=== PATIENT | male | born 1955 | race Caucasian/White ===

== ENCOUNTER 2019-08-23 08:34 | Emergency (ER) | payer MEDICARE, OTHER ==
[2019-08-23] MEDS ORDERED: Sodium Chloride 0.9% 10 ML Syringe FLUSH PRN (08:50)
[2019-08-23] MEDS ORDERED: Aspirin 81 MG Tab.Chew PO ONE (08:50)
[2019-08-23] MEDS ORDERED: Ondansetron 4 MG/2 ML SDV IVPUSH ONE (08:59)
--- NOTE | 2019-08-23 08:59 | EDM.PDOC ---
ED HPI GENERAL MEDICAL PROBLEM - General Chief Complaint: Chest Pain Stated Complaint: LIGHT HEADED AND CHEST PAIN Time Seen by Provider: 08/23/19 08:41 Source of Information: Reports: Patient, Family History Limitations: Reports: No Limitations - History of Present Illness INITIAL COMMENTS - FREE TEXT/NARRATIVE: The patient presents with chest pain, shortness of breath, generalized weakness and lightheadedness. He also felt like his heart was racing. He says he has been having some of these feelings for months where he has generalized weakness , lightheadedness and his heart will be racing. He says he will usually sit down and he feels better. Today he woke up feeling lightheaded and he had some chest pain, and shortness of breath. He denies fever or chills. He has no headache. He has no cough, congestion or runny nose. He has nausea but no vomiting. He has no abdominal pain. He has no history of heart problems. He has a history of hypertension for which he takes lisinopril. He has been eating and drinking okay lately. Onset: Gradual Duration: Week(s): Location: Reports: Chest (gone now) Quality: Reports: Ache Severity: Mild Improves with: Reports: None Worsens with: Reports: None Associated Symptoms: Reports: Chest Pain, Nausea/Vomiting, Shortness of Breath. Denies: Cough, Fever/Chills, Headaches - Related Data Allergies Allergy/AdvReac Type Severity Reaction Status Date / Time No Known Allergies Allergy Verified 08/23/19 08:41 Home Meds: Home Meds Lisinopril 20 mg PO DAILY 08/23/19 [History] ED ROS GENERAL - Review of Systems Review Of Systems: See Below Constitutional: Reports: Weakness, Fatigue. Denies: Fever, Chills HEENT: Reports: No Symptoms Respiratory: Reports: Shortness of Breath Cardiovascular: Reports: Lightheadedness. Denies: Chest Pain Endocrine: Reports: Fatigue GI/Abdominal: Reports: Nausea. Denies: Abdominal Pain, Vomiting : Reports: No Symptoms Musculoskeletal: Reports: No Symptoms Skin: Reports: No Symptoms Neurological: Reports: Weakness (Generalized). Denies: Headache ED EXAM, GENERAL - Physical Exam Exam: See Below Exam Limited By: No Limitations General Appearance: Alert, No Apparent Distress Ears: Normal External Exam Nose: Normal Inspection Head: Atraumatic, Normocephalic Neck: Normal Inspection Respiratory/Chest: No Respiratory Distress, Lungs Clear, Normal Breath Sounds Cardiovascular: Regular Rate, Rhythm, No Edema, No Murmur GI/Abdominal: Soft, Non-Tender, No Organomegaly, No Mass Back Exam: Normal Inspection Extremities: Normal Inspection Neurological: Alert, Oriented, No Motor/Sensory Deficits EKG INTERPRETATION EKG Date: 08/23/19 Time: 08:38 Rhythm: Other (sinus tachycardia) Rate (Beats/Min): 105 [place]: Normal P-Wave: Present QRS: Normal ST-T: Normal QT: Normal EKG Interpretation Comments: PVCs Course - Vital Signs Last Recorded V/S: Last Vital Signs Temp 98.0 F 08/23/19 08:35 Pulse 98 08/23/19 08:35 Resp 18 08/23/19 08:35 BP 186/81 H 08/23/19 08:35 Pulse Ox 100 08/23/19 08:35 Orthostatic Blood Pressure [ 154/92 Standing] Orthostatic Blood Pressure [ 176/82 Sitting] Orthostatic Blood Pressure [ 174/81 Supine] - Orders/Labs/Meds Orders: Active Orders 24 hr Category Date Time Status Cardiac Monitoring [RC] . DIRECTED Care 08/23/19 08:50 Active EKG Documentation Completion [RC] ASDIRECTED Care 08/23/19 11:11 Active EKG Documentation Completion [RC] STAT Care 08/23/19 08:51 Active Holter Monitor 48 Hours [RC] .PRN Care 08/23/19 11:56 Active Peripheral IV Care [RC] . DIRECTED Care 08/23/19 08:51 Active Sodium Chloride 0.9% [Normal Saline] 1,000 ml Med 08/23/19 09:00 Active IV .BOLUS Sodium Chloride 0.9% [Saline Flush] Med 08/23/19 08:50 Active 10 ml FLUSH ASDIRECTED PRN Peripheral IV Insertion Adult [OM.PC] Stat Oth 08/23/19 08:50 Ordered EKG 12 Lead [EK] Stat Ther 08/23/19 11:11 Ordered Medication Orders Sodium Chloride (Normal Saline) 1,000 mls @ 1,000 mls/hr IV .BOLUS TRUMAN Last Admin: 08/23/19 09:00 Dose: 1,000 mls/hr Sodium Chloride (Saline Flush) 10 ml FLUSH ASDIRECTED PRN PRN Reason: Keep Vein Open Last Admin: 08/23/19 08:55 Dose: 10 ml Labs: Laboratory Tests 08/23/19 08/23/19 08/23/19 Range/Units 08:55 08:55 08:55 WBC 4.80 (4.23-9.07) K/mm3 RBC 4.98 (4.63-6.08) M/mm3 Hgb 14.7 (13.7-17.5) gm/dl Hct 44.3 (40.1-51.0) % MCV 89.0 (79.0-92.2) fl MCH 29.5 (25.7-32.2) pg MCHC 33.2 (32.2-35.5) g/dl RDW Std Deviation 43.0 (35.1-43.9) fL Plt Count 177 (163-337) K/mm3 MPV 9.5 (9.4-12.3) fl Neut % (Auto) 65.3 (34.0-67.9) % Lymph % (Auto) 25.6 (21.8-53.1) % [place] % (Auto) 8.1 (5.3-12.2) % Eos % (Auto) 0.4 L (0.8-7.0) Baso % (Auto) 0.4 (0.1-1.2) % Neut # (Auto) 3.13 (1.78-5.38) K/mm3 Lymph # (Auto) 1.23 L (1.32-3.57) K/mm3 [place] # (Auto) 0.39 (0.30-0.82) K/mm3 Eos # (Auto) 0.02 L (0.04-0.54) K/mm3 Baso # (Auto) 0.02 (0.01-0.08) K/mm3 D-Dimer, Quantitative < 0.19 L (0.19-0.50) mg/L Sodium 134 L (136-145) mEq/L Potassium 4.0 (3.5-5.1) mEq/L Chloride 98 (98-107) mEq/L Carbon Dioxide 26 (21-32) mEq/L Anion Gap 14.0 (5-15) BUN 20 H (7-18) mg/dL Creatinine 0.9 (0.7-1.3) mg/dL Est Cr Clr Drug Dosing 91.87 mL/min Estimated GFR (MDRD) > 60 (>60) mL/min BUN/Creatinine Ratio 22.2 H (14-18) Glucose 174 H (80-115) mg/dL Calcium 9.4 (8.5-10.1) mg/dL Magnesium 1.7 L (1.8-2.4) mg/dl Total Bilirubin 0.4 (0.2-1.0) mg/dL AST 31 (15-37) U/L ALT 59 (16-63) U/L Alkaline Phosphatase 90 (46-116) U/L Troponin I < 0.017 (0.00-0.056) ng/mL Total Protein 7.5 (6.4-8.2) g/dl Albumin 4.2 (3.4-5.0) g/dl Globulin 3.3 gm/dL Albumin/Globulin Ratio 1.3 (1-2) TSH 3rd Generation 3.220 (0.358-3.74) uIU/mL 08/23/19 Range/Units 11:15 WBC (4.23-9.07) K/mm3 RBC (4.63-6.08) M/mm3 Hgb (13.7-17.5) gm/dl Hct (40.1-51.0) % MCV (79.0-92.2) fl MCH (25.7-32.2) pg MCHC (32.2-35.5) g/dl RDW Std Deviation (35.1-43.9) fL Plt Count (163-337) K/mm3 MPV (9.4-12.3) fl Neut % (Auto) (34.0-67.9) % Lymph % (Auto) (21.8-53.1) % [place] % (Auto) (5.3-12.2) % Eos % (Auto) (0.8-7.0) Baso % (Auto) (0.1-1.2) % Neut # (Auto) (1.78-5.38) K/mm3 Lymph # (Auto) (1.32-3.57) K/mm3 [place] # (Auto) (0.30-0.82) K/mm3 Eos # (Auto) (0.04-0.54) K/mm3 Baso # (Auto) (0.01-0.08) K/mm3 D-Dimer, Quantitative (0.19-0.50) mg/L Sodium (136-145) mEq/L Potassium (3.5-5.1) mEq/L Chloride (98-107) mEq/L Carbon Dioxide (21-32) mEq/L Anion Gap (5-15) BUN (7-18) mg/dL Creatinine (0.7-1.3) mg/dL Est Cr Clr Drug Dosing mL/min Estimated GFR (MDRD) (>60) mL/min BUN/Creatinine Ratio (14-18) Glucose (80-115) mg/dL Calcium (8.5-10.1) mg/dL Magnesium (1.8-2.4) mg/dl Total Bilirubin (0.2-1.0) mg/dL AST (15-37) U/L ALT (16-63) U/L Alkaline Phosphatase (46-116) U/L Troponin I < 0.017 (0.00-0.056) ng/mL Total Protein (6.4-8.2) g/dl Albumin (3.4-5.0) g/dl Globulin gm/dL Albumin/Globulin Ratio (1-2) TSH 3rd Generation (0.358-3.74) uIU/mL Meds: Medications Generic Name Dose Route Start Last Admin Trade Name Freq PRN Reason Stop Dose Admin Sodium Chloride 1,000 mls @ 1,000 mls/hr 08/23/19 09:00 08/23/19 09:00 Normal Saline IV 1,000 mls/hr .BOLUS TRUMAN Administration Sodium Chloride 10 ml 08/23/19 08:50 08/23/19 08:55 Saline Flush FLUSH 10 ml ASDIRECTED PRN Administration Keep Vein Open Discontinued Medications Generic Name Dose Route Start Last Admin Trade Name Freq PRN Reason Stop Dose Admin Aspirin 324 mg 08/23/19 08:50 08/23/19 09:13 Aspirin PO 08/23/19 08:51 324 mg ONETIME ONE Administration Ondansetron HCl 4 mg 08/23/19 08:59 08/23/19 09:05 Zofran IVPUSH 08/23/19 09:00 4 mg ONETIME ONE Administration - Re-Assessments/Exams Free Text/Narrative Re-Assessment/Exam: 08/23/19 12:00 I ordered an IV NS 1L bolus, EKG, CXR, labs, zofran and orthostatic vital. His EKG shows a sinus tachycardia with PVCs. His CXR looks good. His CBC and CMP look good. His troponin is negative. He did get lightheaded when my nurse did orthostatic vitals on him. His blood pressure did not drop that much. He feels good now. I am not seeing any abnormality now. He said when this first started this morning he did have some palpitations. I will get him on a holter monitor for 48 hours and have him follow up with his doctor within the week. Departure - Departure Time of Disposition: 12:05 Disposition: Home, Self-Care 01 Condition: Good Clinical Impression: Atypical chest pain, Lightheaded, Nausea Referrals: PCP,Not In Area [Primary Care Provider] - Forms: ED Department Discharge Additional Instructions: Wear the holter monitor for 48 hours. Follow up with your doctor within a week. Please return if you are worse. - My Orders Last 24 Hours: My Active Orders 08/23/19 08:50 Cardiac Monitoring [RC] . DIRECTED Sodium Chloride 0.9% [Saline Flush] 10 ml FLUSH ASDIRECTED PRN Peripheral IV Insertion Adult [OM.PC] Stat 08/23/19 08:51 EKG Documentation Completion [RC] STAT Peripheral IV Care [RC] . DIRECTED 08/23/19 09:00 Sodium Chloride 0.9% [Normal Saline] 1,000 ml IV .BOLUS 08/23/19 11:11 EKG Documentation Completion [RC] ASDIRECTED EKG 12 Lead [EK] Stat 08/23/19 11:56 Holter Monitor 48 Hours [RC] .PRN - Assessment/Plan Last 24 Hours: My Active Orders 08/23/19 08:50 Cardiac Monitoring [RC] . DIRECTED Sodium Chloride 0.9% [Saline Flush] 10 ml FLUSH ASDIRECTED PRN Peripheral IV Insertion Adult [OM.PC] Stat 08/23/19 08:51 EKG Documentation Completion [RC] STAT Peripheral IV Care [RC] . DIRECTED 08/23/19 09:00 Sodium Chloride 0.9% [Normal Saline] 1,000 ml IV .BOLUS 08/23/19 11:11 EKG Documentation Completion [RC] ASDIRECTED EKG 12 Lead [EK] Stat 08/23/19 11:56 Holter Monitor 48 Hours [RC] .PRN
[2019-08-23] MEDS ORDERED: Sodium Chloride 0.9% 1,000 ML IV SCH (09:00)
--- NOTE | 2019-08-23 10:53 | CR ---
Chest: Portable view of the chest was obtained. Comparison: No prior chest imaging is available. Slight parenchymal density within the upper right lung is seen most likely representing minimal area of focal scarring/fibrosis but difficult to exclude minimal area of infection if patient has correlating symptoms. Lungs otherwise are clear. Mild scoliosis is noted within the spine. Heart size is normal. Upper mediastinum is normal. Impression: 1. Small finding within the right upper lung as described above. 2. Nothing acute is otherwise seen. Diagnostic code #3 This report was dictated in [place] Standard Time
== END 2019-08-23 12:15 | disposition home or self-care (01) ==
LOC: JD.ED 08:34
DX: R07.89 Other chest pain (principal); R42 Dizziness and giddiness; R11.0 Nausea; I10 Essential (primary) hypertension; Z79.899 Other long term (current) drug therapy
CPT/HCPCS: 36415; 71045; 80053; 83735; 84443; 84484; 85025; 85379; 93005; 93225; 93226; 96361; 96374; 99285; A9270; J2405; J7030; 93010; 99284

== ENCOUNTER 2025-08-13 18:00 | Emergency (ER) | payer MEDICARE, OTHER ==
[2025-08-13 19:01] LABS: BASOPHILS ABSOLUTE AUTO 0.0 K/mm3 (0.0-0.2); BASOPHILS PERCENT AUTO 0.5 % (0.0-1.0); EOSINOPHILS ABSOLUTE AUTO 0.0 K/mm3 (0.0-0.4); EOSINOPHILS PERCENT AUTO 0.5 % (0.0-6.0); IMMATURE GRAN ABSOLUTE AUTO 0.01 K/mm3 (0.00-0.05); IMMATURE GRAN PERCENT AUTO 0.2 % (0.0-0.4); LYMPHOCYTES ABSOLUTE AUTO 2.2 K/mm3 (1.0-4.8); LYMPHOCYTES PERCENT AUTO 33.0 % (24.0-44.0); MEAN PLATELET VOLUME 9.9 fl (9.4-12.4); MONOCYTES ABSOLUTE AUTO 0.4 K/mm3 (0.0-0.8); MONOCYTES PERCENT AUTO 6.5 % (0.0-8.0); NEUTROPHILS ABSOLUTE AUTO 3.9 K/mm3 (1.8-7.7); NEUTROPHILS PERCENT AUTO 59.3 % (41.0-71.0); NRBC ABSOLUTE 0.00 (0.00-0.02); NRBC PERCENT 0.0 % (0.0-0.2); PLATELET COUNT,PLT 163 K/mm3 (150-400); RED BLOOD CELL COUNT 4.22 M/mm3 (4.52-5.90); WHITE BLOOD CELL COUNT,WBC 6.57 K/mm3 (3.9-11.3)
[2025-08-13] MEDS: Sodium Chloride 0.9% 10 ML Syringe FLUSH PRN (19:09)
[2025-08-13 19:21] LABS: A/G RATIO 1.2 (1-2); ALANINE AMINOTRANSFERASE,ALT 46 U/L (16-63); ASPARTATE AMNIOTRANSFERASE,AST 26 U/L (15-37); BILIRUBIN TOTAL 0.5 mg/dL (0.2-1.0); BLOOD UREA NITROGEN,BUN 20 mg/dL (7-18); CARBON DIOXIDE,CO2 28 mEq/L (21-32); CHLORIDE,CL 105 mEq/L (98-107); CREATININE 0.8 mg/dL (0.7-1.3); ESTIMATED GFR 95 mL/min (>60); GLUCOSE RANDOM 120 mg/dL (70-99); POTASSIUM,K 3.7 mEq/L (3.5-5.1); PROTEIN TOTAL,TP 6.9 g/dl (6.4-8.2); SODIUM,NA 142 mEq/L (136-145); TROPONIN I HIGH SENSITIVITY 6 pg/mL (<=76); TSH 3.839 uIU/mL (0.358-3.74)
[2025-08-13 19:58] LABS: T4 FREE 0.88 ng/dL (0.76-1.46)
== END 2025-08-13 20:23 | disposition home or self-care (01) ==
LOC: JD.ED 18:00
DX: R55 Syncope and collapse (principal); R00.2 Palpitations; I10 Essential (primary) hypertension; Z79.899 Other long term (current) drug therapy
CPT/HCPCS: 36415; 71046; 80053; 84439; 84443; 84484; 85025; 85379; 86140; 93005; 93246; 96360; 99285; J7030; 93010; 99283

== ENCOUNTER 2025-08-22 12:57 | Emergency (ER) | payer MEDICARE ==
[2025-08-22] MEDS ORDERED: Sodium Chloride 0.9% 10 ML Syringe FLUSH PRN (14:20)
[2025-08-22 14:41] LABS: BASOPHILS ABSOLUTE AUTO 0.0 K/mm3 (0.0-0.2); BASOPHILS PERCENT AUTO 0.4 % (0.0-1.0); EOSINOPHILS ABSOLUTE AUTO 0.0 K/mm3 (0.0-0.4); EOSINOPHILS PERCENT AUTO 0.1 % (0.0-6.0); IMMATURE GRAN ABSOLUTE AUTO 0.01 K/mm3 (0.00-0.05); IMMATURE GRAN PERCENT AUTO 0.1 % (0.0-0.4); LYMPHOCYTES ABSOLUTE AUTO 0.8 K/mm3 (1.0-4.8); LYMPHOCYTES PERCENT AUTO 12.0 % (24.0-44.0); MEAN PLATELET VOLUME 9.7 fl (9.4-12.4); MONOCYTES ABSOLUTE AUTO 0.4 K/mm3 (0.0-0.8); MONOCYTES PERCENT AUTO 6.4 % (0.0-8.0); NEUTROPHILS ABSOLUTE AUTO 5.6 K/mm3 (1.8-7.7); NEUTROPHILS PERCENT AUTO 81.0 % (41.0-71.0); NRBC ABSOLUTE 0.00 (0.00-0.02); NRBC PERCENT 0.0 % (0.0-0.2); PLATELET COUNT,PLT 155 K/mm3 (150-400); RED BLOOD CELL COUNT 4.56 M/mm3 (4.52-5.90); WHITE BLOOD CELL COUNT,WBC 6.91 K/mm3 (3.9-11.3)
[2025-08-22 14:53] LABS: APPEARANCE,URINE CLEAR (Clear); GLUCOSE,URINE NEGATIVE (Negative); OCCULT BLOOD,URINE TRACE-INTACT (Negative)
[2025-08-22 15:04] LABS: EPITHELIAL CELLS,URINE 0-5 /hpf (0-5)
[2025-08-22 15:09] LABS: BLOOD UREA NITROGEN,BUN 15.0 mg/dL (7-18); CARBON DIOXIDE,CO2 29.0 mEq/L (21-32); CHLORIDE,CL 102.0 mEq/L (98-107); CREATININE 0.8 mg/dL (0.7-1.3); EST CRCL DRUG DOSING (CG) 92.37 mL/min; ESTIMATED GFR 95.0 mL/min (>60); GLUCOSE RANDOM 109.0 mg/dL (70-99); LACTIC ACID 0.9 mmol/L (0.4-2.0); POTASSIUM,K 3.8 mEq/L (3.5-5.1); SODIUM,NA 139.0 mEq/L (136-145); TROPONIN I HIGH SENSITIVITY 6.0 pg/mL (<=76)
== END 2025-08-22 16:15 | disposition home or self-care (01) ==
LOC: JD.ED 12:57
DX: R53.1 Weakness (principal); R42 Dizziness and giddiness; I10 Essential (primary) hypertension; Z79.899 Other long term (current) drug therapy
CPT/HCPCS: 36415; 80048; 81001; 83605; 83735; 83880; 84484; 85025; 93005; 99285